=== PATIENT | female | born 1945 | race Two or more races ===

== ENCOUNTER 2020-04-13 11:45 | Inpatient (IN) | payer OTHER ==
[~2020-04-13] VITALS: Ht 152.4 cm; Wt 59.0 kg
[2020-04-13] MEDS ORDERED: BRIN8DRO OP (12:02)
[2020-04-13] MEDS ORDERED: GLIP5TAB12 PO (12:02)
[2020-04-13] MEDS ORDERED: SIMV-43 PO (12:02)
[2020-04-13] MEDS ORDERED: LATA2.5D2 OP (12:02)
[2020-04-13] MEDS ORDERED: PRIM50TA31 PO (12:02)
[2020-04-13 12:44] LABS: BASOPHILS % 0.3 % (0.0-2.0); EOSINOPHILS % 0.5 % (0.0-5.0); HEMATOCRIT. 39.1 % (36.0-48.0); HEMOGLOBIN. 13.4 g/dL (12.0-16.0); LYMPHOCYTES % 18.7 % (20.0-50.0); MEAN CORPUSCULAR HEMOGLOBIN 29.7 pg (28.0-32.0); MEAN CORPUSCULAR VOLUME 86.7 fL (81.0-99.0); MEAN PLATELET VOLUME 9.3 fl (7.4-10.4); MONOCYTES % 6.9 % (2.0-8.0); NEUTROPHILS % 73.6 % (40.0-76.0); PLATELET 266 x1000/uL (130-400); RED BLOOD CELL COUNT 4.51 mill/uL (4.2-5.4); RED CELL DISTRIBUTION WIDTH 13.6 % (11.6-14.6)
[2020-04-13 12:49] LABS: CHLORIDE 104 mEq/L (98-107)
[2020-04-13 12:56] LABS: LDL CHOLESTEROL 109 mg/dL (5-100)
[2020-04-13 12:58] LABS: INR 0.9
[2020-04-13] MEDS ORDERED: ASPIRIN 81MG TABLET PO ONE (15:00)
[2020-04-13] MEDS ORDERED: ACETAMINOPHEN 325MG TABLET PO PRN (15:30)
[2020-04-13] MEDS ORDERED: DEXTROSE 50% WATER 50ML SYRINGE IV PRN (15:30)
[2020-04-13] MEDS ORDERED: ONDANSETRON HCL 4MG/2ML INJ IV PRN (15:30)
[2020-04-13 15:48] LABS: CLARITY URINE CLEAR (CLEAR); COLOR URINE YELLOW (YELLOW); KETONES URINE NEGATIVE (NEGATIVE); LEUKOCYTE ESTERASE URINE 3+ (NEGATIVE); NITRITE URINE NEGATIVE (NEGATIVE); OCCULT BLOOD URINE NEGATIVE (NEGATIVE); PROTEIN URINE NEGATIVE (NEGATIVE); UROBILINOGEN URINE 0.2 E.U./dL (0.2-1.0)
[2020-04-13] MEDS: BLOOD SUGAR DIAGNOSTIC STRIP TEST SCH ×2 (16:44→21:05)
[2020-04-13] MEDS ORDERED: ENOXAPARIN 40MG/0.4ML SYR SUBCUT SCH (17:00)
[2020-04-13] MEDS: INSULIN LISPRO 100 UNITS/ML SUBCUT SCH ×2 (18:20→21:41)
[2020-04-13] MEDS: ATORVASTATIN CALCIUM 40MG TABLET PO SCH (23:20)
[2020-04-13 23:40] VITALS: BP 108/60
[2020-04-13 23:45] VITALS: BP 108/60
[2020-04-14] VITALS (62 sets, daily range): BP systolic 92–153; BP diastolic 21–89
[2020-04-14] MEDS: DEXAMETHASONE 4MG/ML 1ML VIAL IV SCH ×5 (01:18→23:53)
[2020-04-14 06:25] LABS: BASOPHILS % 0.1 % (0.0-2.0); EOSINOPHILS % 0.2 % (0.0-5.0); HEMATOCRIT. 38.3 % (36.0-48.0); HEMOGLOBIN. 13.1 g/dL (12.0-16.0); LYMPHOCYTES % 10.3 % (20.0-50.0); MEAN CORPUSCULAR HEMOGLOBIN 29.5 pg (28.0-32.0); MEAN PLATELET VOLUME 9.7 fl (7.4-10.4); MONOCYTES % 2.2 % (2.0-8.0); NEUTROPHILS % 87.2 % (40.0-76.0); PLATELET 266 x1000/uL (130-400); RED BLOOD CELL COUNT 4.45 mill/uL (4.2-5.4); RED CELL DISTRIBUTION WIDTH 13.5 % (11.6-14.6)
[2020-04-14] MEDS ORDERED: HYDROMORPHONE HCL/PF 2MG/ML (OR) ONE (06:39)
[2020-04-14] MEDS ORDERED: LIDOCAINE HCL 1% 20ML VIAL (Pyxis) INJ ONE (06:40)
[2020-04-14] MEDS ORDERED: PROPOFOL 200MG/20ML VIAL IV ONE (06:40)
[2020-04-14] MEDS ORDERED: MIDAZOLAM HCL 2 MG/2 ML VIAL ONE (06:40)
[2020-04-14] MEDS ORDERED: FENTANYL CITRATE/PF 50MCG/ML 5ML VIAL ONE (06:40)
[2020-04-14] MEDS ORDERED: ROCURONIUM BROMIDE 10MG/ML VIAL 5ML IV ONE (06:40)
[2020-04-14] MEDS ORDERED: LIDOCAINE HCL/EPINEPHRINE 1%-EPI 1:100,000 20 ML VIAL ONE ×2 (06:41→06:45)
[2020-04-14] MEDS ORDERED: BACITRACIN 50,000 UNITS/VIAL ONE (06:41)
[2020-04-14] MEDS ORDERED: THROMBIN (BOVINE) 5000 UNITS/VIAL TOP ONE (06:41)
[2020-04-14] MEDS ORDERED: BACITRACIN 15GM TUBE TOP ONE (06:54)
[2020-04-14 06:55] LABS: CHLORIDE 104 mEq/L (98-107)
[2020-04-14] MEDS ORDERED: NICARDIPINE 100 MG in SODIUM CHLORIDE 0.9% 60 ML IV PRN (07:15)
[2020-04-14 07:27] LABS: CLARITY URINE CLEAR (CLEAR); COLOR URINE YELLOW (YELLOW); KETONES URINE NEGATIVE (NEGATIVE); LEUKOCYTE ESTERASE URINE NEGATIVE (NEGATIVE); NITRITE URINE NEGATIVE (NEGATIVE); OCCULT BLOOD URINE NEGATIVE (NEGATIVE); PROTEIN URINE NEGATIVE (NEGATIVE); SPECIFIC GRAVITY URINE 1.018 (1.005-1.030)
[2020-04-14] MEDS: BLOOD SUGAR DIAGNOSTIC STRIP TEST SCH ×4 (07:30→20:44)
[2020-04-14] MEDS ORDERED: NEOSTIGMINE METHYLSULFATE 1MG/ML 10 ML VIAL ONE (08:21)
[2020-04-14] MEDS ORDERED: GLYCOPYRROLATE 0.2 MG/ML 2ML VIAL ONE (08:21)
[2020-04-14] MEDS ORDERED: ONDANSETRON HCL 4MG/2ML INJ ONE (08:30)
[2020-04-14] MEDS ORDERED: ASPIRIN 81MG TABLET PO SCH (09:00)
[2020-04-14] MEDS ORDERED: DIPHENHYDRAMINE INJ IV PRN (09:15)
[2020-04-14] MEDS ORDERED: NALOXONE INJ IV PRN (09:15)
[2020-04-14] MEDS ORDERED: ONDANSETRON INJ IV PRN (09:15)
[2020-04-14] MEDS ORDERED: MORPHINE PCA 50MG/50ML IV PRN (09:30)
[2020-04-14] MEDS: DEXT 5%/LACTATED RINGERS 1,000 ML IV SCH ×3 (09:45→19:44)
[2020-04-14] MEDS: INSULIN LISPRO 100 UNITS/ML SUBCUT SCH ×4 (09:45→21:09)
[2020-04-14] MEDS: MORPHINE SULFATE 2 MG/ML CPJ (NOT FOR IM USE) IV PRN (09:47)
[2020-04-14] MEDS ORDERED: HYDROMORPHONE PCA 10MG/50ML IV PRN (10:00)
[2020-04-14] MEDS ORDERED: CEFAZOLIN SODIUM 1000MG/VIAL IV SCH (14:00)
[2020-04-14] MEDS: CEFAZOLIN 1000MG PREMIX 50 ML IV SCH ×2 (14:40→21:09)
[2020-04-14] MEDS: INSULIN GLARGINE UD 100 UNITS/ML SYR SUBCUT SCH (21:10)
[2020-04-14] MEDS: ATORVASTATIN CALCIUM 40MG TABLET PO SCH (21:38)
[2020-04-15] VITALS (64 sets, daily range): BP systolic 102–164; BP diastolic 44–100
[2020-04-15 05:44] LABS: HEMATOCRIT. 37.5 % (36.0-48.0); HEMOGLOBIN. 12.4 g/dL (12.0-16.0); MEAN CORPUSCULAR HEMOGLOBIN 28.8 pg (28.0-32.0); MEAN PLATELET VOLUME 9.4 fl (7.4-10.4); PLATELET 275 x1000/uL (130-400); RED BLOOD CELL COUNT 4.32 mill/uL (4.2-5.4); RED CELL DISTRIBUTION WIDTH 13.8 % (11.6-14.6)
[2020-04-15] MEDS: DEXAMETHASONE 4MG/ML 1ML VIAL IV SCH ×2 (05:44→12:00)
[2020-04-15] MEDS: BLOOD SUGAR DIAGNOSTIC STRIP TEST SCH ×4 (05:44→21:53)
[2020-04-15] MEDS: CEFAZOLIN 1000MG PREMIX 50 ML IV SCH ×2 (05:44→16:42)
[2020-04-15 05:50] LABS: CHLORIDE 106 mEq/L (98-107)
[2020-04-15] MEDS: INSULIN LISPRO 100 UNITS/ML SUBCUT SCH ×4 (06:59→21:49)
[2020-04-15 07:07] LABS: PLATELET ESTIMATE NORMAL
[2020-04-15] MEDS: DOCUSATE SODIUM 250MG CAPSULE PO SCH (10:30)
[2020-04-15] MEDS: INSULIN GLARGINE UD 100 UNITS/ML SYR SUBCUT SCH ×2 (10:30→21:52)
[2020-04-15] MEDS ORDERED: MORPHINE SULFATE 2 MG/ML CPJ (NOT FOR IM USE) IV PRN (12:15)
[2020-04-15] MEDS: PRIMIDONE 50MG TABLET PO SCH (21:51)
[2020-04-15] MEDS: ATORVASTATIN CALCIUM 40MG TABLET PO SCH (21:51)
[2020-04-16] VITALS: BP 133/73
[2020-04-16 04:00] VITALS: BP 148/90
[2020-04-16] MEDS: BLOOD SUGAR DIAGNOSTIC STRIP TEST SCH ×4 (07:30→20:59)
[2020-04-16] MEDS: INSULIN LISPRO 100 UNITS/ML SUBCUT SCH ×3 (07:50→20:59)
[2020-04-16 08:00] VITALS: BP 110/55
[2020-04-16] MEDS: PRIMIDONE 50MG TABLET PO SCH ×2 (08:42→20:59)
[2020-04-16] MEDS: DOCUSATE SODIUM 250MG CAPSULE PO SCH (08:42)
[2020-04-16] MEDS: MORPHINE SULFATE 2 MG/ML CPJ (NOT FOR IM USE) IV PRN (09:08)
[2020-04-16 12:00] VITALS: BP 115/50
[2020-04-16] MEDS: INSULIN GLARGINE UD 100 UNITS/ML SYR SUBCUT SCH (12:33)
[2020-04-16 12:58] LABS: BASOPHILS % 0.1 % (0.0-2.0); HEMATOCRIT. 37.7 % (36.0-48.0); HEMOGLOBIN. 12.6 g/dL (12.0-16.0); LYMPHOCYTES % 9.7 % (20.0-50.0); MEAN CORPUSCULAR HEMOGLOBIN 29.1 pg (28.0-32.0); MEAN CORPUSCULAR VOLUME 86.9 fL (81.0-99.0); MEAN PLATELET VOLUME 9.3 fl (7.4-10.4); MONOCYTES % 7.7 % (2.0-8.0); NEUTROPHILS % 82.5 % (40.0-76.0); PLATELET 273 x1000/uL (130-400); RED BLOOD CELL COUNT 4.34 mill/uL (4.2-5.4); RED CELL DISTRIBUTION WIDTH 13.9 % (11.6-14.6)
[2020-04-16 13:02] LABS: CHLORIDE 105 mEq/L (98-107)
[2020-04-16] MEDS ORDERED: HYDR-4001 MT (14:22)
[2020-04-16] MEDS ORDERED: INSU100I28 SQ ×2 (14:23→15:03)
[2020-04-16] MEDS ORDERED: INSLIS SUBCUT (14:23)
[2020-04-16] MEDS ORDERED: BLOO-1465 MT (14:23)
[2020-04-16] MEDS ORDERED: LANC1COM2 MC (14:23)
[2020-04-16 15:08] VITALS: BP 115/50
[2020-04-16] MEDS ORDERED: INSULIN GLARGINE UD 100 UNITS/ML SYR SUBCUT NR (17:00)
[2020-04-16 20:00] VITALS: BP 121/55
[2020-04-16] MEDS: ATORVASTATIN CALCIUM 40MG TABLET PO SCH (20:58)
[2020-04-16] MEDS ORDERED: INSULIN GLARGINE UD 100 UNITS/ML SYR SUBCUT SCH (22:00)
[2020-04-17] VITALS: BP 158/78
[2020-04-17 04:00] VITALS: BP 174/57
[2020-04-17] MEDS: HYDROCODONE/ACETAMINOPHEN 5/325MG TABLET PO PRN ×2 (06:08→11:11)
[2020-04-17] MEDS: BLOOD SUGAR DIAGNOSTIC STRIP TEST SCH ×3 (07:02→17:20)
[2020-04-17] MEDS: INSULIN LISPRO 100 UNITS/ML SUBCUT SCH (07:03)
[2020-04-17 08:00] VITALS: BP 134/67
[2020-04-17] MEDS: PRIMIDONE 50MG TABLET PO SCH (09:40)
[2020-04-17] MEDS: DOCUSATE SODIUM 250MG CAPSULE PO SCH (09:40)
[2020-04-17 11:11] VITALS: BP 134/67
[2020-04-17] MEDS ORDERED: METFORMIN HCL 500MG TABLET PO NR (12:30)
[2020-04-17 13:28] LABS: HEMATOCRIT 37.7 % (36.0-48.0); HEMOGLOBIN 12.6 g/dL (12.0-16.0); MEAN CORPUSCULAR HEMOGLOBIN 28.8 pg (28.0-32.0); MEAN CORPUSCULAR VOLUME 86.6 fL (81.0-99.0); PLATELET 261 x1000/uL (130-400); RED BLOOD CELL COUNT 4.36 mill/uL (4.2-5.4); RED CELL DISTRIBUTION WIDTH 14.2 % (11.6-14.6)
== END 2020-04-17 17:39 | disposition home health service (06) | DRG 471 ==
LOC: ER 11:45 → EDBEDREQ 12:34 → EDBEDREQTM 12:43 → EDBEDREQ 12:43 → ENRESERV 21:52 → 5EST 04-14 00:35 → MICUNO 04-14 08:27 → 6EST 04-15 18:23
PROVIDERS: ADMIT Internal Medicine; ATTEND Internal Medicine
PROC: 0RG10K0 Fusion of Cervical Vertebral Joint with Nonautologous Tissue Substitute, Anterior Approach, Anterior Column, Open Approach (ICD-10-PCS; principal; 2020-04-14)
PROC: 0RB30ZZ Excision of Cervical Vertebral Disc, Open Approach (ICD-10-PCS; 2020-04-14)
PROC: 00NW0ZZ Release Cervical Spinal Cord, Open Approach (ICD-10-PCS; 2020-04-14)
PROC: 4A11X4Z Monitoring of Peripheral Nervous Electrical Activity, External Approach (ICD-10-PCS; 2020-04-14)
DX: M48.02 Spinal stenosis, cervical region (principal); G82.50 Quadriplegia, unspecified; G95.20 Unspecified cord compression; N39.0 Urinary tract infection, site not specified; M47.12 Other spondylosis with myelopathy, cervical region; M50.10 Cervical disc disorder with radiculopathy, unspecified cervical region; E11.9 Type 2 diabetes mellitus without complications; E78.5 Hyperlipidemia, unspecified; G20 Parkinson's disease; D72.829 Elevated white blood cell count, unspecified; M47.22 Other spondylosis with radiculopathy, cervical region; T38.0X5A Adverse effect of glucocorticoids and synthetic analogues, initial encounter; Z20.828 Contact with and (suspected) exposure to other viral communicable diseases; E78.00 Pure hypercholesterolemia, unspecified; Y92.89 Other specified places as the place of occurrence of the external cause; Z79.84 Long term (current) use of oral hypoglycemic drugs
CPT/HCPCS: 36415; 70551; 71045; 72040; 72141; 76000; 80048; 80053; 81003; 82962; 83036; 83721; 83880; 84484; 85025; 85027; 88304; 88311; 93005; 93306; 97116; 97162; 97166; 97535; 99285; C1713; J0690; J1100; J1170; J1650; J1815; J2250; J2270; J2405; J2704; J2710; J3010; J3490; J7050; J7121; L0172; U0003-CS

== ENCOUNTER 2020-04-18 21:45 | Emergency (ER) | payer OTHER ==
[~2020-04-18] VITALS: Ht 157.5 cm; Wt 59.4 kg
[~2020-04-18 21:45] MED LIST: BLOO-1465 MT; BRIN8DRO OP; HYDR-4001 MT; LANC1COM2 MC; LATA2.5D2 OP; PRIM50TA31 PO; SIMV-43 PO
[2020-04-18] MEDS ORDERED: SODIUM CHLORIDE 0.9% 1,000 ML IV ONE (22:58)
[2020-04-18] MEDS ORDERED: ONDANSETRON HCL 4MG/2ML INJ IV STA (22:58)
[2020-04-18] MEDS ORDERED: MORPHINE SULFATE 4 MG/ML CPJ (NOT FOR IM USE) IV STA (22:58)
[2020-04-18 23:31] LABS: BASOPHILS % 0.4 % (0.0-2.0); EOSINOPHILS % 0.6 % (0.0-5.0); HEMATOCRIT. 42.6 % (36.0-48.0); HEMOGLOBIN. 14.1 g/dL (12.0-16.0); LYMPHOCYTES % 20.3 % (20.0-50.0); MEAN CORPUSCULAR HEMOGLOBIN 28.9 pg (28.0-32.0); MEAN CORPUSCULAR VOLUME 87.3 fL (81.0-99.0); MEAN PLATELET VOLUME 8.8 fl (7.4-10.4); NEUTROPHILS % 69.7 % (40.0-76.0); PLATELET 327 x1000/uL (130-400); RED BLOOD CELL COUNT 4.88 mill/uL (4.2-5.4); RED CELL DISTRIBUTION WIDTH 13.9 % (11.6-14.6)
[2020-04-18 23:36] LABS: CHLORIDE 102 mEq/L (98-107)
[2020-04-18 23:52] LABS: INR 0.9; PROTHROMBIN TIME 9.5 sec (9.6-11.0)
[2020-04-19] MEDS ORDERED: TETANUS, DIPHTHERIA, PERTUSSIS VAC/PF 0.5ML (>7YR OLD) IM ONE (01:00)
[2020-04-19 01:30] VITALS: BP 142/61
== END 2020-04-19 02:05 | disposition short-term general hospital (02) ==
LOC: ER 21:45
DX: T24.202A Burn of second degree of unspecified site of left lower limb, except ankle and foot, initial encounter (principal); T21.22XA Burn of second degree of abdominal wall, initial encounter; T31.0 Burns involving less than 10% of body surface; X12.XXXA Contact with other hot fluids, initial encounter; Y93.89 Activity, other specified; Y92.89 Other specified places as the place of occurrence of the external cause; Y99.8 Other external cause status; E78.00 Pure hypercholesterolemia, unspecified; Z98.890 Other specified postprocedural states; Z79.899 Other long term (current) drug therapy; E11.65 Type 2 diabetes mellitus with hyperglycemia
CPT/HCPCS: 36415; 80053; 85025; 85610; 90471; 90715; 96361; 96374; 96375; 99285; J2270; J2405; J7030